=== PATIENT | male | born 1990 | race Asian ===

== ENCOUNTER 2020-07-21 20:13 | Emergency (ER) | payer MEDICAID, OTHER ==
[~2020-07-21] VITALS: Ht 180.3 cm; Wt 91.6 kg
[2020-07-21 20:13] VITALS: BP 132/88
--- NOTE | 2020-07-21 20:29 | NUR ---
PT CAME TO THE ED C/O R ELBOW PAIN. PT AAOX4, VSS, RESPIRATIONS EVEN AND UNLABORED ON RA W/ NAD NOTED. PT CONNECTED TO THE MONITOR AND POX.
--- NOTE | 2020-07-21 20:33 | NUR ---
XRAY AT BEDSIDE
[2020-07-21] MEDS ORDERED: HYDROCODONE/APAP 5/325MG TABLET ONE (20:46)
[2020-07-21] MEDS ORDERED: HYDROCODONE/APAP 5/325MG TABLET PO ONE (21:00)
--- NOTE | 2020-07-21 21:14 | NUR ---
Patient discharged to home in stable condition. Written and verbal after care instructions given. Patient verbalizes understanding of instruction.
== END 2020-07-21 21:15 | disposition home or self-care (01) ==
LOC: ER 20:14
DX: S42.491A Other displaced fracture of lower end of right humerus, initial encounter for closed fracture (principal); W51.XXXA Accidental striking against or bumped into by another person, initial encounter; Y93.67 Activity, basketball; Y92.89 Other specified places as the place of occurrence of the external cause; Y99.8 Other external cause status
CPT/HCPCS: 73060-TC; 73070-TC